=== PATIENT | female | born 1955 | race Caucasian/White ===

== ENCOUNTER 2018-12-27 12:55 | Outpatient (CLI) | payer MEDICARE | END 2018-12-27 13:30 | disposition home or self-care (01) | LOC: SLEEP 12:55 | PROVIDERS: ATTEND Surgery | DX: G47.33 Obstructive sleep apnea (adult) (pediatric) (principal) ==

== ENCOUNTER 2019-09-05 19:56 | Outpatient (CLI) | payer MEDICARE | END 2019-09-06 07:13 | disposition home or self-care (01) | LOC: SLEEP 19:56 | PROVIDERS: ATTEND Nurse Practitioner | DX: G47.33 Obstructive sleep apnea (adult) (pediatric) (principal); J34.2 Deviated nasal septum; I10 Essential (primary) hypertension | CPT/HCPCS: 95811 ==

== ENCOUNTER 2020-12-14 07:06 | Day surgery (SDC) | payer MEDICARE ==
[~2020-12-14] VITALS: Ht 162 cm; Wt 122.6 kg
[2020-12-14] VITALS (10 sets, daily range): BP systolic 121–164; BP diastolic 66–89
[2020-12-14] MEDS ORDERED: BACITRACIN INJECTION 50,000 UNIT, SODIUM CHLORIDE 0.9% IRRIGATIO 500 ML IR ONE ×4 (07:30→07:45)
[2020-12-14] MEDS ORDERED: NS IV 1000 ML 1,000 ML IV SCH ×2 (07:30→09:15)
[2020-12-14 07:48] LABS: HEMOGLOBIN 15.4 g/dL (11.5-16.0); MEAN PLATELET VOLUME 11.6 fL (9.0-12.2); WHITE BLOOD COUNT 10.1 10^3/uL (4.3-11.0)
--- NOTE | 2020-12-14 07:57 | Diagnostic Imaging Report ---
INDICATION: Generator change. No prior examinations are available for comparison. FINDINGS: There is cardiomegaly. Lungs are clear. There is no pleural effusion or pneumothorax. The mediastinum is unremarkable. Pacemaker overlies the left hemithorax. There may be some minimal venous congestion. IMPRESSION: Cardiomegaly and some questionable minimal central pulmonary venous congestion, otherwise unremarkable. Dictated by: Dictated on workstation # [id number]
[2020-12-14 07:58] LABS: INR 1.1 (0.8-1.4); PROTHROMBIN TIME PATIENT 14.1 SEC (12.2-14.7)
[2020-12-14] MEDS ORDERED: ceFAZolin INJECTION 1,000 MG ONE ×2 (07:58→13:27)
[2020-12-14] MEDS ORDERED: LIDOCAINE 1% INJ 20 ML 20 ML VIAL ONE ×2 (07:59→08:49)
[2020-12-14] MEDS ORDERED: NS IV 1000 ML 1,000 ML ONE (07:59)
[2020-12-14] MEDS ORDERED: HEParin (CATH LAB) 1,000 ML IV ONE (07:59)
--- NOTE | 2020-12-14 08:04 | Cardiac Procedure Note-CS/ASA ---
Pre-Procedure Note Pre-Op Procedure Note H&P Reviewed The H&P was reviewed, patient examined and no changes noted. Date H&P Reviewed: Dec 14, 2020 Time H&P Reviewed: 08:03 Conscious Sedation Pre-Proced Time 08:03 ASA Score 3 For ASA 3 and 4: Consider anesthesia and medical clearance. Also, for patients with a history of failed moderate sedation consider anesthesia. Airway Lungs Heart ASA score ASA 1: a normal healthy patient ASA 2: a patient with a mild systemic disease (mid diabetes, controlled hypertension, obesity x ASA 3: a patient with a severe systemic disease that limits activity (angina, COPD, prior Myocardial infarction) ASA 4: a patient with an incapacitating disease that is a constant threat to life (CHF, renal failure) ASA 5: a moribund patient not expected to survive 24 hrs. (ruptured aneurysm) ASA 6: a declared brain- patient whose organs are being harvested. For emergent operations, add the letter E after the classification Mallampati Classification Grade 3 Sedation Plan Analgesia, Amnesia, Plan communicated to team members, Discussed options with patient/fam, Discussed risks with patient/fam The patient is an appropriate candidate to undergo the planned procedure, sedation, and anesthesia. The patient immediately re-assessed prior to indication. BRANDI BRINK MD Dec 14, 2020 08:04
[2020-12-14] MEDS ORDERED: fentaNYL INJECTION 100 MCG/2 ML AMP ONE ×2 (08:10→08:42)
[2020-12-14] MEDS ORDERED: MIDAZOLAM 5 MG/5 ML (VERSED) VIAL ONE ×2 (08:10→08:42)
[2020-12-14] MEDS ORDERED: HYDR-34 PO (08:12)
[2020-12-14] MEDS ORDERED: LISI1TAB46 PO (08:12)
[2020-12-14] MEDS ORDERED: MTP25TSR PO (08:12)
[2020-12-14] MEDS ORDERED: MELO15TA14 PO (08:12)
[2020-12-14] MEDS ORDERED: TRZ50T PO (08:12)
[2020-12-14] MEDS ORDERED: APIX5TAB PO (08:12)
[2020-12-14 08:22] LABS: ALBUMIN 3.9 GM/DL (3.2-4.5); BILIRUBIN,TOTAL 0.5 MG/DL (0.1-1.0); CALCIUM 8.5 MG/DL (8.5-10.1); CREATININE SERUM 1.36 MG/DL (0.60-1.30); TOTAL PROTEIN 7.1 GM/DL (6.4-8.2)
[2020-12-14] MEDS ORDERED: proPOfol 200 MG/20 ML (DIPRIVAN) VIAL IV ONE (08:52)
[2020-12-14] MEDS ORDERED: PATIENT MAY USE OWN MEDS, ALL PO SCH (09:15)
--- NOTE | 2020-12-14 09:22 | Packmaker Change ---
Pacemaker Change Physician (s)/Registration Manager (s) Physician BRANDI BRINK MD Pre-Procedure Diagnosis Pre-Procedure Diagnosis: sinus node dysfunction Post-Procedure Note Procedure Start Date: Dec 14, 2020 Name of Procedure: Dual-chamber pacemaker generator change Findings/Procedure Note 65-year-old lady with history of sinus node dysfunction, has dual-chamber pacemaker, [employer] type. Reached ROSEANN scheduled for generator replacement. Next After next thing the procedure to the patient was unconscious were explained patient was brought to the cardiac catheterization laboratory, she was sedated with Versed and fentanyl, continue to be sensitive and moving. Anesthesia were called for assistance for deeper sedation, during the sedation she become slightly hypotensive, responded to IV fluid and blood pressure improved. After applying local anesthesia skin incision was made and the pacemaker [employer] type device was retrieved, it was implanted in February 28, 2011. A new device [employer] ALEK XT DR MRI Serial number [id number] was attached to the leads. The new device was placed in the pocket after irrigating the pocket with antibiotic solution then the pocket was closed with 2 layers of sutures with no complication. Atrial lead, [employer] with serial number [id number] Ventricular lead [employer] Josh with serial number [id number] Post-implant testing P-wave 2.5 mV, impedance 380, threshold 0.5 AT 0.4 ms R-wave 11.8 mV, impedance 665, pacing threshold 0.75 V at 0.5 ms Conclusion Successful dual-chamber pacemaker generator replacement with no complication Anesthesia Type: Conscious Sedation Estimated blood loss (mL): 5 ml Contrast Amount: 0 ml Post-Procedure Diagnosis Post-operative diagnosis: Sinus node dysfunction Dual-chamber pacemaker Hypertension Hyperlipidemia BRANDI BRINK MD Dec 14, 2020 9:22 am
--- NOTE | 2020-12-14 10:29 | Progress Note ---
Standard Progress Note Progress Notes/Assess & Plan Date Seen by a Provider: Dec 14, 2020 Time Seen by a Provider: 08:56 Progress/Assessment & Plan [id number]: Called to recyclable materials sorter for rescue sedation for pacemaker battery change. On arrival, patient under sterile drapes and had received 6mg Versed and 150mcg Fentanyl from recyclable materials sorter personnel and was still intolerable to stimulation. Etco2 and VS stable. I identified myself to patient, verified the patient had NKDA, and gave a total of 100mg Propofol for the procedure. Patient tolerated well and reported off to GLADYS Archer SHANNA R CRNA Dec 14, 2020 10:29
[2020-12-14] MEDS ORDERED: HYDROcodone/APAP 7.5 MG/325 MG (LORTAB, LORCET PLUS) TABLET PO SCH (11:15)
--- NOTE | 2020-12-14 11:30 | Anesthesia-General Post-Op ---
MAC Patient Condition Mental Status/LOC: Same as Preop Cardiovascular: Satisfactory Nausea/Vomiting: Absent Respiratory: Satisfactory Pain: Controlled Complications: Absent Post Op Complications Complications None Follow Up Care/Instructions Patient Instructions None needed. Anesthesiology Discharge Order Discharge Order Patient is doing well, no complaints, stable vital signs, no apparent adverse anesthesia problems. No complications reported per nursing. TEVIN KRISHNA CRNA Dec 14, 2020 11:30
[2020-12-14] MEDS ORDERED: CEFU500T63 PO (12:33)
--- NOTE | 2020-12-14 12:34 | Discharge Inst-Post CATH ---
Discharge Inst-CATH/EP Problems Reviewed?: Yes Post Cardiac Cath/EP D/C Inst Follow Up/Plan Appointment with Dr. BRINK's office next week for wound check <b>CARDIAC CATH/EP PROCEDURE DISCHARGE INSTRUCTIONS</b> ACTIVITY * Go Home directly and rest. * Limit activity of the leg (or wrist if it was used) for 7 days including aerobics, swimming, jogging, bicycling, etc. * Restrict stair-climbing for 7 days if possible, if not, climb up with your non-cath leg, then bring together on the same step. * Avoid lifting, pushing, pulling or excessive movement of the affected extremity for 7 days. * Customary sexual activity may be resumed after 2 days-use caution not to use a position that strains or causes pain to the affected extremity. * No driving for 24 hours. * NO SMOKING. * Avoid straining for bowel movements for 7 days. * Gentle walking on level ground is allowed. * Returning to work will depend on the type of procedure and the results. Your doctor will discuss this with you. CALL YOUR DOCTOR FOR ANY OF THE FOLLOWING: *If bleeding from the puncture site occurs- Apply gentle pressure to site with clean cloth and call your doctor or EMS. * If a knot or lump forms under the skin, increases in size, or causes pain. * If bruising appears to be worsening or moving further down your leg instead of disappearing. * Temperature above 101 F. CARE OF YOUR GROIN INCISION; * Bruising or purple discoloration of the skin near the puncture site is common. * You may shower only, no bathtub bathing for 5 days. Be careful to avoid slipping as your leg may feel stiff. * If a closure device was used on your femoral artery, please see the attached guide regarding care of the device and your leg. * Leave dressing on FOR 24 hours. CARE OF YOUR WRIST INCISION; * Bruising or purple discoloration of the skin near the puncture site is common. * You may shower. * DO NOT submerge wrist. * Leave dressing on FOR 24 hours. BRANDI BRINK MD Dec 14, 2020 12:34 pm
[2020-12-14] MEDS ORDERED: WATER (STERILE) FOR INJECTION 10 ML ONE (13:27)
[2020-12-14] MEDS ORDERED: HYDROcodone/APAP 7.5 MG/325 MG (LORTAB, LORCET PLUS) TABLET PO ONE (13:29)
[2020-12-14] MEDS ORDERED: ceFAZolin INJECTION 1,000 MG in WATER (STERILE) FOR INJECTION 10 ML IV SCH (14:00)
[2020-12-14] MEDS ORDERED: APIXABAN 5 MG (ELIQUIS) TABLET PO SCH (21:00)
[2020-12-15] MEDS ORDERED: traZODone 50 MG (DESYREL) TAB PO SCH (09:00)
[2020-12-15] MEDS ORDERED: lisINopril 20 MG (PRINIVIL) TABLET PO SCH (09:00)
[2020-12-15] MEDS ORDERED: MELOXICAM 15 MG PO SCH (09:00)
[2020-12-15] MEDS ORDERED: HYDROCHLOROTHIAZIDE 12.5 MG (HCTZ) CAP PO SCH (09:00)
== END 2020-12-14 16:56 | disposition home or self-care (01) ==
LOC: CATH 07:06 → CSD 10:02 → CATH 16:56
PROVIDERS: ATTEND Internal Medicine Cardiovascular Disease
DX: Z45.010 Encounter for checking and testing of cardiac pacemaker pulse generator [battery] (principal); I49.5 Sick sinus syndrome; I48.0 Paroxysmal atrial fibrillation; I10 Essential (primary) hypertension; F41.9 Anxiety disorder, unspecified; I65.23 Occlusion and stenosis of bilateral carotid arteries; M19.90 Unspecified osteoarthritis, unspecified site; G47.33 Obstructive sleep apnea (adult) (pediatric); E78.5 Hyperlipidemia, unspecified; Z79.01 Long term (current) use of anticoagulants; Z79.891 Long term (current) use of opiate analgesic; Z79.1 Long term (current) use of non-steroidal anti-inflammatories (NSAID); Z79.899 Other long term (current) drug therapy; Z91.19 Patient's noncompliance with other medical treatment and regimen
CPT/HCPCS: 33228; 71045; 80053; 80061; 85027; 85610; 85730; 87081; C1785; 36415

== ENCOUNTER → 2022-03-27 | Outpatient (CLI) | payer MEDICARE ==
[~2022-03-27] MED LIST: APIX5TAB PO; CEFU500T63 PO; HYDR-34 PO; LISI1TAB46 PO; MELO15TA14 PO; MTP25TSR PO; TRZ50T PO
== END ==
LOC: CARDFS 14:29
PROVIDERS: ATTEND Physician Assistant
DX: I11.9 Hypertensive heart disease without heart failure (principal)
CPT/HCPCS: 93306

== ENCOUNTER → 2022-05-14 | Outpatient (CLI) | payer MEDICARE ==
[~2022-05-14] VITALS: Ht 162 cm; Wt 122.0 kg
[~2022-05-14] MED LIST changes: +CATHETER FLUSH 10 ML SYR IVP PRN; +REGADENOSON 0.4 MG/5 ML SYR (LEXISCAN) IV ONE
[2022-05-14 13:24] VITALS: BP 143/88
--- NOTE | 2022-05-14 15:24 | Cardiology Stress Test Report ---
Stress Test Report Date of Procedure/Referring: Date of Procedure: May 14, 2022 PCP No,Local Physician Admitting Physician Admitting Physician: Attending Physician: Shelley Whitaker Indications: HTN Baseline Heart Rate: 68 Baseline Blood Pressure: Blood Pressure Systolic: 143 Blood Pressure Diastolic: 88 Baseline Vitals Vital Signs Date Time Temp Pulse Resp B/P (MAP) Pulse Ox O2 Delivery O2 Flow Rate FiO2 05/14/22 13:24 60 143/88 (106) Baseline EKG: Baseline EKG: NSR Summary After explaining the procedure to the patient, she signed a consent and then brought to the stress nuclear laboratory. Patient received 0.4 mg Lexiscan for stress test, ECG, heart rate and blood pressure were monitored continuously. Resting and stress dose of radio tracer were injected, imaging was acquired and reviewed in short axis, horizontal long axis and vertical long axis views. TID: 1.09 SSS: 5 SDS: 5 EF: 69 1. Patient tolerated Lexiscan well 2. Breast attenuation with mild decrease uptake at the base of the anterior wall and anterior septum, typical female pattern, no significant ischemia or infarction on SPECT images 3. Normal left ventricular size, ejection fraction 69% Copy Copies To 1: [facility]/BRANDI DENTON MD May 14, 2022 15:24
== END ==
LOC: CARD 12:15
PROVIDERS: ATTEND Physician Assistant
DX: I49.5 Sick sinus syndrome (principal); I10 Essential (primary) hypertension
CPT/HCPCS: 78452; 93017; A9502

== ENCOUNTER 2023-06-22 05:32 | Outpatient (CLI) | payer MEDICARE ==
[~2023-06-22] VITALS: Ht 162.6 cm; Wt 136.3 kg
[~2023-06-22 05:32] MED LIST changes: -CATHETER FLUSH 10 ML SYR IVP PRN; -REGADENOSON 0.4 MG/5 ML SYR (LEXISCAN) IV ONE
[2023-06-22] MEDS ORDERED: ATOR10TA66 PO (13:36)
[2023-06-22] MEDS ORDERED: [UNRECOGNIZED DRUG - CODE] PO (13:36)
[2023-06-22] MEDS ORDERED: GABA300S3 PO (13:36)
[2023-06-22] MEDS ORDERED: HYDR50TA76 PO (13:36)
== END 2023-06-22 15:26 | disposition home or self-care (01) ==
LOC: PREOP 05:32
PROVIDERS: ATTEND Obstetrics & Gynecology
DX: Z01.818 Encounter for other preprocedural examination (principal)